=== PATIENT | female | born 1995 | race Caucasian/White ===

== ENCOUNTER 2020-12-08 11:07 | Emergency (ER) | payer OTHER, MEDICAID, SELFPAY ==
--- NOTE | ~2020-12-08 | US_ITS ---
EXAMINATION: US venous doppler [facility] DATE: 12/08/2020 12:05 INDICATION: Left lower limb pain TECHNIQUE: Grayscale ultrasound images without and with compression and Doppler ultrasound images of the left lower extremity veins were obtained. COMPARISON: None. FINDINGS: The visualized portions of left common femoral vein, profunda (deep) femoral vein, femoral vein, popl iteal vein, peroneal veins, posterior tibial veins, gastrocnemius vein and greater saphenous vein out flow are patent. IMPRESSION: 1. No deep venous thrombosis in the left lower limb. Reviewed, dictated and finalized at location A.
[2020-12-08 11:14] VITALS: BP 139/76; PULSE 105; RESP 16; TEMP 36.9; O2SAT 99
[2020-12-08] MEDS: SODIUM CHLORIDE 0.9% IV 1,000 ML 999 ML IV CONT (12:16)
[2020-12-08 12:18] LABS: Basophils Absolute Auto 0.1 K/mm3 (0.0-0.1); Basophils Percent Auto 0.5 % (0.2-1.2); Eosinophils Absolute Auto 0.3 K/mm3 (0-0.3); Eosinophils Percent Auto 2.2 % (0-4.4); Hematocrit 40.5 % (37.0-47.0); Hemoglobin 13.1 g/dL (12.0-15.0); Immature Granulocyte Absolute 0.05 K/mm3 (0.00-0.031); Immature Granulocyte Percent A 0.4 % (0-0.5); Lymphocytes Absolute Auto 4.14 K/mm3 (0.9-3.2); Lymphocytes Percent Auto 32.9 % (18.3-44.2); Mean Corpuscular HGB Conc 32.3 g/dl (32-36); Mean Corpuscular Hemoglobin 29.9 pg (26-34); Mean Corpuscular Volume 92.5 fl (80-100); Mean Platelet Volume 10.5 fl (7.4-10.4); Monocytes Absolute Auto 0.8 K/mm3 (0.1-0.6); Monocytes Percent Auto 6.1 % (2.6-8.5); Neutrophils Absolute Auto 7.3 K/mm3 (1.3-6.7); Neutrophils Percent Auto 57.9 % (45.5-73.1); Platelet Count Result 294 k/mm3 (150-375); Red Blood Count 4.38 M/mm3 (4.2-5.4); Red Cell Distribution Width 12.6 % (11.5-14.5); White Blood Count 12.6 K/mm3 (4.5-10.0)
[2020-12-08 12:29] LABS: Anion Gap 8 mmol/L (8-16); Blood Urea Nitrogen 11 mg/dL (7-17); Calcium 9.6 mg/dL (8.4-10.2); Carbon Dioxide 27 mmol/L (22-30); Chloride 103 mmol/L (98-107); Creatine Kinase 29 U/L (30-135); Estimated CRCL calculation 82 ml/min; Estimated Glomerular Filt Rate > 60; Glucose 80 mg/dL (65-110); Potassium 4.4 mmol/L (3.4-5.0); Prothrombin Time 12.6 Seconds (11.1-14.7); Sodium 138 mmol/L (137-145)
[2020-12-08 12:30] LABS: Partial Thromboplastin Time 22.6 SECONDS (22.3-36.8)
--- NOTE | 2020-12-08 12:33 | ED.GENADULT ---
HPI - General Adult General Chief complaint: Skin/Abscess/Foreign Body Stated complaint: RASH ON LEG SPREADING Time Seen by Provider: 12/08/20 11:28 Source: patient and RN notes reviewed Mode of arrival: ambulatory Limitations: no limitations History of Present Illness HPI narrative: Patient is a 25-year-old female who presents with left leg pain noting pain of the left leg was initially diagnosed as a rash to the leg was placed on steroids and antibiotics which she is currently still taking the rash resolved and now she has aching pain in the leg worse with weightbearing and activity this morning notes that the pain had increased and is worse with any movement Related Data Home Medications Medication Instructions Recorded Confirmed cephalexin 12/08/20 methylprednisolone mg 12/08/20 [id number] K tablet PO 12/08/20 [Adults Multivitamin] Allergies Allergy/AdvReac Type Severity Reaction Status Date / Time Penicillins Allergy Unknown Rash Verified 12/08/20 11:26 ADHESIVE BANDAGE Allergy Unknown RASH Uncoded 12/08/20 11:26 Review of Systems Review of Systems: All systems reviewed & are unremarkable except as noted in HPI and below PMFSH Family History Family History (Updated 03/15/15 @ 09:00 by DOCTOR UNKNOWN) Other Diabetes mellitus Social History Social History Smoking status: Current every day smoker Gender identity (if verbalized by the patient): Female Exam Narrative: GENERAL: Well-appearing, well-nourished, and in no acute distress. HEAD: Normocephalic, atraumatic. EYES: PERRLA and EOMI. ENT: Nares clear, no rhinorrhea or epistaxis. Mucous membranes moist. CHEST: Clear to auscultation. No respiratory distress. No wheezes rales or rhonchi HEART: Regular rate and rhythm. No murmur heard. Normal peripheral pulses. EXTREMITIES: Normal range of motion. No edema. Tenderness of the calf and thigh there are no deformities noted compartments are soft SKIN: Warm, dry, no rash. NEURO: No focal deficits. Alert and oriented x3. Cranial nerves II through XII grossly intact. Neurovascularly intact. Capillary refill less than 2 seconds PSYCH: Normal mood and affect. Course Course Emergency Course: Patient evaluated for leg pain in the emergency department no high risk changes in the evaluation will be referred back to primary care for further evaluation ABCs and vital signs intact and stable Vital Signs Vital signs: Vital Signs Temperature 98.4 F 12/08/20 11:14 Pulse Rate 105 H 12/08/20 11:14 Respiratory Rate 16 12/08/20 11:14 Blood Pressure 139/76 12/08/20 11:14 Pulse Oximetry 99 12/08/20 11:14 Temperature 98.4 F 12/08/20 11:14 Pulse Rate 105 H 12/08/20 11:14 Respiratory Rate 16 12/08/20 11:14 Blood Pressure 139/76 12/08/20 11:14 Pulse Oximetry 99 12/08/20 11:14 Medical Decision Making MDM Narrative Medical decision making narrative: Patients injury or pain is consistent with musculoskeletal etiology. No signs of neurological or vascular compromise on exam. Compartments and tisues are soft without signs of compartment syndrome. Pain is felt appropriate for further evaluation on an outpatient basis. Vital Signs Vital Signs: Vital Signs Temperature 98.4 F 12/08/20 11:14 Pulse Rate 105 H 12/08/20 11:14 Respiratory Rate 16 12/08/20 11:14 Blood Pressure 139/76 12/08/20 11:14 Pulse Oximetry 99 12/08/20 11:14 Temperature 98.4 F 12/08/20 11:14 Pulse Rate 105 H 12/08/20 11:14 Respiratory Rate 16 12/08/20 11:14 Blood Pressure 139/76 12/08/20 11:14 Pulse Oximetry 99 12/08/20 11:14 Lab Data Result diagrams: 12/08/20 12:11 12/08/20 12:11 Labs: Lab Results 12/08/20 12/08/20 12/08/20 Range/Units 12:11 12:11 12:11 WBC 12.6 H (4.5-10.0) K/mm3 RBC 4.38 (4.2-5.4) M/mm3 Hgb 13.1 (12.0-15.0) g/dL Hct 40.5
== END 2020-12-08 13:08 | disposition home or self-care (01) ==
PROVIDERS: Emergency Medicine Emergency Medical Services; Emergency Provider Emergency Medicine; PCP Nurse Practitioner Family
DX: M79.605 Pain in left leg (principal); F17.200 Nicotine dependence, unspecified, uncomplicated
CPT/HCPCS: 36415; 80048; 82550; 85025; 85610; 85730; 93971; 96360; 99284; J7030

== ENCOUNTER 2022-12-06 15:09 | Emergency (ER) | payer OTHER, SELFPAY ==
[2022-12-06 15:34] VITALS: BP 140/90; PULSE 71; RESP 16; TEMP 36.8; O2SAT 99
[2022-12-06 15:35] VITALS: BP 140/90; PULSE 71; RESP 16; TEMP 36.8; O2SAT 99
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
== END 2022-12-06 16:26 | disposition home or self-care (01) ==
PROVIDERS: Emergency Provider Nurse Practitioner; PCP Nurse Practitioner Family
DX: L01.00 Impetigo, unspecified (principal); F17.210 Nicotine dependence, cigarettes, uncomplicated
CPT/HCPCS: 87081; 87880; 99213; G0463

== ENCOUNTER 2024-08-14 09:42 | Outpatient (CLI) | payer OTHER, SELFPAY ==
[2024-08-14 10:35] LABS: Hematocrit 39.5 % (37.0-47.0); Hemoglobin 12.4 g/dL (12.0-15.0)
--- OUTSIDE RECORDS SUMMARY | 2024-08-14 11:09 | XMS_ITS | Clinical Summary ---
Author Organization [facility] [employer] Address [address] [place] [address] Care Team Providers Care Relationship Advisor Name Role Phone Kamilla Lee APRN-HOUSE PAINTER Primary Care Provider [phone] Source Comments [facility],non-owned Affiliates and Associated Physician Practices is amultiple site organization consisting of ambulatory clinics and hospital sitesin [place], [place], [place] and [place]. This disclosure is being madepursuant to the Care Everywhere program and may not contain all information available regarding this patient. Last updated 18.[facility] [employer] Allergies Active Allergy Reactions Criticality Noted Date Comments Adhesive Sensitivity Urticaria Medium 02/22/2019 Penicillins Other 02/22/2019 Yeast infection Medications * Be aware that medications may not be up to date on this document. Alwaysverify current medications with the patient. Medication Sig Dispensed Refills Start Date End Date Status albuterol HFA (PROVENTIL;VENTOLIN; PROAIR) 108 (90 Base) MCG/ACT inhaler Inhale 2 puffs by mouth every 4 hours as needed for Wheezing 1 Inhaler 02/22/2019 Active Social History Tobacco Use Types Packs/Day Years Used Date Smoking Tobacco: Every Day Smokeless Tobacco: Never Sex and Gender Information Value Date Recorded Sex Assigned at Not on file Gender Identity Not on file Sexual Orientation Not on file Last Filed Vital Signs Vital Sign Reading Time Taken Comments Blood Pressure 118/72 02/22/2019 12:51 PM CDT Pulse 81 02/22/2019 12:51 PM CDT Temperature 36.7 C (98.1 F) 02/22/2019 12:51 PM CDT Respiratory Rate 18 02/22/2019 12:51 PM CDT Oxygen Saturation 97% 02/22/2019 12:51 PM CDT Inhaled Oxygen Concentration - - Weight 83.9 kg (185 lb) 02/22/2019 12:51 PM CDT Height 162.6 cm (5' 4 ) 02/22/2019 12:51 PM CDT Body Mass Index 31.76 02/22/2019 12:51 PM CDT Plan of Treatment Health Maintenance Due Date Last Done Comments PAP SMEAR 1996 HIV SCREENING 08/09/2011 HEPATITIS C SCREENING 08/04/2014 DTAP/TDAP/TD VACCINES (1 - Tdap) 08/09/2015 HEPATITIS B VACCINE (1 of 3 - 19+ 3-dose series) 08/09/2015 COVID-19 VACCINE (1 - 2023-2 5 season) 2024 INFLUENZA VACCINE (#1) 2024 DEPRESSION SCREENING 05/10/2024 ZOSTER VACCINE (1 of 2) 2046 HIB VACCINE Aged Out No longer eligi ble based on patient's age to complete this topic HPV VACCINE Aged Out No longer eligi ble based on patient's age to complete this topic MENINGOCOCCAL (Group B) VACC INE SHARED DECISION-MAKING Aged Out No longer eligibl e based on patient's age to complete this topic MENINGOCOCCAL GROUPS A/C/Y/W VACCINE Aged Out No longer eligible b ased on patient's age to complete this topic PNEUMOCOCCAL VACCINE Aged Out No long er eligible based on patient's age to complete this topic Care Teams Relationship Advisor Relationship Specialty Start Date End Date Kamilla Lee APRN-MARKIE [address] [place] [address] PCP - General Nurse Practitioner 02/22/19
--- OUTSIDE RECORDS SUMMARY | 2024-08-14 11:09 | XMS_ITS | Clinical Summary ---
Author Organization [facility] Address [facility] [place] [address] Care Team Providers Care Donor Relations Coordinator Name Role Phone Kamilla Lee MARBIN Primary Care Provider [phone] Allergies Active Allergy Reactions Criticality Noted Date Comments Morphine Itching 03/15/2020 Penicillins Nausea and Vomiting,Other (see comment) 03/20/2013 PCN causes an upset stomach and severe fatigue. Tape Unknown,Rash Low 02/19/2012 Medications PROAIR HFA 108 (90 Base) MCG/ACT inhaler INHALE 2 PUFFS PO Q 4 H UTD 0 03/11/2018 Active fluticasone propionate 50 MCG/ACT nasal sprayIndication s:Allergic rhinitis due to animal hair and dander 2 sprays by Each Nostril route daily. 15.8 g 5 08/05/2018 Active cetirizine 10 MG tabletIndicatio ns:Allergic rhinitis due to animal hair and dander Take 1 tablet (10 mg total) by mouth daily. 30 tablet 6 09/14/2019 Active Cholecalciferol (VITAMIN D) 50 MCG (1999 UT) Tab Active Active Problems Problem Noted Date Diagnosed Date Generalized abdominal pain 03/18/2020 Alcohol abuse 03/18/2020 Chronic vomiting 03/18/2020 Elevated liver enzymes 03/18/2020 Cough 01/15/2019 Tick bite, initial encounter 12/14/2018 Vaginal irritation 12/14/2018 Sore throat 11/22/2018 Sunburn 11/22/2018 Oral thrush 11/22/2018 Anxiety 02/09/2018 Class 1 obesity with body ma ss index (BMI) of 33.0 to 33.9 in adult 02/09/2018 Menstrual period late 02/09/2018 Shaky 03/16/2017 Low vitamin D level 02/11/2017 Allergic rhinitis 02/08/2017 Chronic sinus infection 02/08/2017 Declined smoking cessation 02/08/2017 Depression 02/08/2017 Leukocytes in urine 02/08/2017 Palpitations 02/08/2017 Tachycardia 02/08/2017 Blood in stool, walker 10/12/2013 Migraine 12/30/2012 Immunizations Name Administration Dates Next Due Dtap (Generic) 02/07/2001, 8,02/20/1997,1996 ,1996 HPV 06/21/2009,02/21/2007,12/20/2006 Hepatitis A Vaccine - 2 Dose 06/21/2009,12/21/19 07 Hepatitis B Pediatric 05/31/1997,1996,05/1996 Hib Vaccine, Prp-D 02/01/1998,02/20/1997, 997,1996 Influenza (FluMist) 02/19/2012,02/11/2010 Influenza Adult (Generic) 02/09/2018,02/09/2018 MMR (Generic) 02/17/2001,08/09/1997 Meningococcal Vac A,C,Y,W-135 Sc 02/11/2010 Opv 02/17/2001,02/20/1997,1996 ,1996 Tdap (Generic) 11/13/2013,11/19/2005 Varicella Vaccine 06/21/2009,12/20/2006,11/07/18 98 Family History Medical History Relation Comments Cancer Maternal Grandmother Cancer Mother pancreatic cance r Thyroid Mother Relation Status Comments Father Alive Maternal Grandmother Mother Social History Tobacco Use Types Packs/Day Years Used Date Smoking Tobacco: Every Day Cigarettes 0.5 11 Smokeless Tobacco: Never Tobacco Cessation:Counseling Given: Yes Comments:Provider to anger control counselor Alcohol Use Standard Drinks/Week Comments Yes 10 (1 standard drink = 0.6 oz pu re alcohol) weekends AUDIT-C Answer Date Recorded Frequency of Alcohol Consumption Never 07/08/2018 Average Number of Drinks Not on file 019 Frequency of Binge Drinking Not on file 05/2018 PHQ-2 Answer Date Recorded PHQ-2 Score - If the patient scores above 3, please move on to questions 3-9 4 03/15/2020 Comments No Sex and Gender Information Value Date Recorded Sex Assigned at Not on file Legal Sex Female 9:22 PM CDT Gender Identity Not on file Sexual Orientation Not on file Last Filed Vital Signs Vital Sign Reading Time Taken Comments Blood Pressure 120/72 01/12/2019 2:18 PM CDT Pulse 83 01/12/2019 2:18 PM CDT Temperature 36.4 C (97.6 F) 01/12/2019 2:18 PM CDT Respiratory Rate 16 01/12/2019 2:18 PM CDT Oxygen Saturation 97% 01/12/2019 2:18 PM CDT Inhaled Oxygen Concentration - - Weight 85.3 kg (188 lb) 01/12/2019 2:18 PM CDT Height 162.6 cm (5' 4 ) 01/12/2019 2:18 PM CDT Body Mass Index 32.27 01/12/2019 2:18 PM CDT Plan of Treatment Health Maintenance Due Date Last Done Comments Cervical Cancer Screening Pap Smear (Age 21 to 29) Every 3 Years 1996 Cervical Cancer Screening 1996 Annual Physical 08/09/1999 Pneumococcal Vaccine: Pediatrics (0 to 5 Years) and At-Risk Patients (6 to 64 Years) (1 of 2 - PCV) 2002 Hepatitis C 2014 DTaP, Tdap and Td Vaccines (7 - Td or Tdap) 11/14/2023 11/13/2013, 11/19/2005, 02/07/2001, Additional history exists COVID-19 Vaccine ( season) 2024 PHQ-2 (Physician [place]) 05/10/2024 Hepatitis B Vaccines Completed 05/31/1997, 1996, 1996 HPV Vaccines Completed 06/21/2009, 02/07, 12/20/2006 Meningococcal Vaccine Aged Out 02/11/2010 No daniella piper eligible based on patient's age to complete this topic Meningococcal B Vaccine Aged Out No l onger eligible based on patient's age to complete this topic RSV Immunizations Under 20 Months Aged Out No longer eligible based on patient's age to complete this topic Insurance [place] [employer] Care Teams Donor Relations Coordinator Relationship Specialty Start Date End Date Kamilla Lee FNP [address] [place] [id number] PCP - General Nurse Practitioner Family 05/11/18
== END 2024-08-14 09:43 | disposition home or self-care (01) ==
LOC: ANHSURGERY 09:51
PROVIDERS: Visit Provider Obstetrics & Gynecology
DX: N92.6 Irregular menstruation, unspecified (principal); Z01.818 Encounter for other preprocedural examination
CPT/HCPCS: 36415; 85014; 85018

== ENCOUNTER 2024-08-18 01:15 | Day surgery (SDC) | payer OTHER, SELFPAY ==
[2024-08-11 09:21] VITALS: BMI 34.4
--- NOTE | 2024-08-11 09:27 | PC.NURSE ---
Report to the Outpatient Waiting Room, entrance under the green pavilion located off [facility], at time _0715_ on date _[id number]_. Planned Procedure Time: _0915_.? Time changes happen often and if your time is changed the preop area will call you the afternoon before. - You and your visitor will be asked to self-screen and do not enter if you have any COVID symptoms. Please call surgeon if you need to reschedule. - A mask is optional within the hospital at this time. Patients may have clear liquids (water, carbonated beverages, clear teas, apple juice) until 3 hours prior to surgery with a maximum of 20 ounces. - No food from midnight until time of surgery and no smoking, or chewing tobacco (or any form of nicotine). No chewing gum, candy or mints. Take only the following medications with a SIP of water on the morning of surgery: __None DO NOT STOP ANY OF YOUR OTHER PRESCRIPTION MEDICATIONS PRIOR TO SURGERY EXCEPT THE FOLLOWING Hold all vitamins and supplements for 3 days per anesthesiologist. Medications to discontinue per physician Date to take last qpjm___[id number]____ Please no make-up, nail macedonian, hairspray, perfume, deodorant, or body powder the day of surgery.? No jewelry (including any body piercings) or valuables the day of surgery, leave them at home.? Please take a shower or bath the night before, or the morning of, surgery with an antibacterial soap.? Wear comfortable, loose fitting clothing.? - Jewelry must be removed prior to entering the operating room.? Rings and piercings that are not removed may be cut off. - The hospital will not accept responsibility for valuables.? - Please leave all valuables, including medications, at home the day of surgery. If you are going home after surgery, a licensed oil transport driver must drive you home.? - NO public transportation without another adult if you receive anesthesia. - We recommend that an adult stay with you for 24 hours following discharge. - We also recommend that you do not drive, make important decision, drink alcoholic beverages, or take any drugs that were not prescribed by your health care provider for at least 24 hours after your discharge time. Follow any additional instructions given to you from your surgeon. Telephone instructions given to __Aline___and asked if any additional questions and then verbalized understanding. Patient advised to call surgeon office or pre surgery nurse liaison [phone] if any additional questions.
--- NOTE | 2024-08-15 12:37 | PM.IMHP ---
H&P: HPI History of Present Illness Date/Time: 08/15/24 12:37 Chief Complaint: Bleeding Narrative: 28-year-old female 1 para 1 admitted for hysteroscopy/dilatation curettage. There was collection of fluid inside her uterus on ultrasound imaging. Risks and benefits of this procedure reviewed in great detail. She received the [facility] handout entitled hysteroscopy as well as dilatation curettage. She had all questions answered. She asked to proceed. Review of Systems Review of Systems: CONSTITUTIONAL: DENIES FEVER, CHILLS, OR SWEATS. EYES: DENIES VISUAL CHANGES, REDNESS, OR DISCHARGE. ENT: REPORTS SORE THROAT AND CERVICAL LYMPHADENOPATHY. DENIES RHINORRHEA, CONGESTION OR OTALGIA CARDIOVASCULAR: DENIES CHEST PAIN, PALPITATIONS, OR EDEMA. RESPIRATORY: DENIES COUGH OR DYSPNEA. GASTROINTESTINAL: DENIES ABDOMINAL PAIN, NAUSEA, VOMITING, OR DIARRHEA. GENITOURINARY: DENIES DYSURIA OR HEMATURIA. SKIN: REPORTS IRRITATION OF THE SKIN TO THE UMBILICUS WITH SOME SEROSANGUINEOUS DRAINAGE. MUSCULOSKELETAL: DENIES BACK PAIN, JOINT PAIN, OR MYALGIA. NEUROLOGIC: DENIES HEADACHE, NUMBNESS, DIZZINESS, OR WEAKNESS. PSYCHIATRIC: DENIES ANXIETY OR DEPRESSION. [facility] Past Medical History Medical History No pertinent past medical history Surgical History Surgical History History of cholecystectomy Family History Family History Mother Family history non-contributory Other Diabetes mellitus Social History Social History Smoking packs per day: 0.5 Smoking cigarettes per day: 10.0 Years smoked: 14 Smoking pack-years: 7.00 Smoking status: Current every day smoker Tobacco type: cigarettes Alcohol intake: current Drinks per week: 2 Substance use: current Substance use type: marijuana Living arrangements: with family Gender identity (if verbalized by the patient): Female Sexual Orientation (if Verbalized by the Patient): Lesbian, Nieves, or Homosexual Spiritual care concerns: No Meds Home Medications and Allergies Home Medications ?Medication ?Instructions ?Recorded ?Confirmed ?Type ashwagandha extract 120 mg capsule 120 mg PO DAILY 08/11/24 08/11/24 History multivitamin (Daily Multi-Vitamin 1 tablet PO DAILY 08/11/24 08/11/24 History tablet) Allergies Allergy/AdvReac Type Severity Reaction Status Date / Time adhesive tape Allergy Mild Rash Verified 08/11/24 09:42 Penicillins Allergy Unknown Rash Verified 08/11/24 09:19 Exam Narrative: GENERAL: WELL-APPEARING, WELL-NOURISHED, AND IN NO ACUTE DISTRESS. HEAD: NORMOCEPHALIC, ATRAUMATIC. EYES: PERRLA AND EOMI. ENT: NARES CLEAR, NO RHINORRHEA OR EPISTAXIS. MUCOUS MEMBRANES MOIST. OROPHARYNX WITHOUT TONSILLAR HYPERTROPHY EXUDATE OR OTHER LESIONS. BILATERAL TMS PEARLY JEFFERSON NONBULGING NECK: SUPPLE. NO ADENOPATHY OR MASSES. NO CAROTID BRUITS OR JVD CHEST: CLEAR TO AUSCULTATION. NO RESPIRATORY DISTRESS. NO WHEEZES RALES OR RHONCHI HEART: REGULAR RATE AND RHYTHM. NO MURMUR HEARD. NORMAL PERIPHERAL PULSES. ABDOMEN: SOFT, NONTENDER, NONDISTENDED, NORMAL ACTIVE BOWEL SOUNDS. EXTREMITIES: NORMAL RANGE OF MOTION. NO EDEMA. SKIN: THERE IS A SCANT AMOUNT OF SEROSANGUINEOUS DRAINAGE NOTED IN THE UMBILICUS. WARM, DRY, NO RASH. NEURO: NO FOCAL DEFICITS. ALERT AND ORIENTED X3. PSYCH: NORMAL MOOD AND AFFECT. Assessment and Plan Assessment and plan (1) Excessive bleeding: Code(s): R58 - Hemorrhage, not elsewhere classified Status: Acute Plan Proceed with hysteroscopy/dilatation curettage
--- OUTSIDE RECORDS SUMMARY | 2024-08-18 01:18 | XMS_ITS | Clinical Summary ---
Author Organization [facility] [employer] Address [address] [place] [address] Care Team Providers Care Proposal Manager Writer Name Role Phone Kamilla Lee APRN-INTERNIST Primary Care Provider [phone] Source Comments [facility],non-owned Affiliates and Associated Physician Practices is amultiple site organization consisting of ambulatory clinics and hospital sitesin [place], [place], [place] and [place]. This disclosure is being madepursuant to the Care Everywhere program and may not contain all information available regarding this patient. Last updated 18.[facility] [employer] Allergies Active Allergy Reactions Criticality Noted Date [...] VACCINE (1 - 2023-2 5 season) 2024 DEPRESSION SCREENING 05/10/2024 INFLUENZA VACCINE (Season Ended) 2025 ZOSTER VACCINE (1 of 2) 2046 HIB [...] age to complete this topic Care Teams Proposal Manager Writer Relationship Specialty Start Date End Date Kamilla Lee APRN-MARKIE [address] [place] [address] PCP - General Nurse Practitioner 02/22/19
--- OUTSIDE RECORDS SUMMARY | 2024-08-18 01:19 | XMS_ITS | Clinical Summary ---
Author Organization [facility] Address [facility] [place] [address] Care Team Providers Care Resident Care Manager Rn Name Role Phone Kamilla Lee MARBIN Primary Care Provider [phone] Allergies Active Allergy Reactions Criticality Noted Date [...] Never Tobacco Cessation:Counseling Given: Yes Comments:Provider to school guidance counselor Alcohol Use Standard Drinks/Week Comments Yes [...] COVID-19 Vaccine ( season) 2024 PHQ-2 (Physician [place]) 05/10/2024 Hepatitis B Vaccines Completed 05/31/1997, 1996, [...] this topic Insurance [employer] Care Teams Resident Care Manager Rn Relationship Specialty Start Date End Date Kamilla Lee FNP [address] [place] [id number] PCP - General Nurse Practitioner Family 05/11/18
--- NOTE | 2024-08-18 06:30 | WPDHPUPDATE1 ---
History and Physical Update Update Date/Time: 08/18/24 06:30 History and Physical has been reviewed, including an updated exam of the patient. There are NO changes in the patient's condition. Risks, benefits, and alternatives have been discussed and questions answered. Patient agrees to proceed with procedure.
[2024-08-18 07:20] VITALS: BP 137/83; PULSE 77; RESP 18; TEMP 36.2; O2SAT 98
[2024-08-18] MEDS: LACTATED RINGERS 1,000 ML 30 ML IV CONT (07:35)
[2024-08-18] MEDS: ACETAMINOPHEN 500 MG TABLET 1000 MG PO (07:35)
--- NOTE | 2024-08-18 07:52 | P.PNAN_ITS ---
Anes - Initial Pre Proc Eval Procedure: Operation Date: 08/18/24 09:15 Proposed Procedures p Hysteroscopy Dilation and Curettage - Arik Acevedo MD Date/Time: 08/18/24 07:52 Surgeon: Arik Acevedo MD Pre Op Diagnosis: heavy bleeding, pelvic pain Patient Data Age: 29 Gender: F Height: 1.63 m Weight: 90.9 kg Allergies Allergy/AdvReac Type Severity Reaction Status Date / Time adhesive tape Allergy Mild Rash Verified 08/18/24 07:47 Penicillins Allergy Unknown Rash Verified 08/18/24 07:47 Home Medications ?Medication ?Instructions ?Recorded ?Confirmed ?Type ashwagandha extract 120 mg capsule 120 mg PO DAILY 08/11/24 08/18/24 History multivitamin (Daily Multi-Vitamin 1 tablet PO DAILY 08/11/24 08/18/24 History tablet) hydrocodone 5 mg-acetaminophen 325 1 tablet PO Q4H PRN pain #14 tabs 08/18/24 Rx mg tablet Patient hx anesthesia problems: none Family hx anesthesia problems: none Results Review: All pre-operative results and documents have been reviewed as part of the pre- operative evaluation. COUNTS INCLUDE 234 BEDS AT THE [facility] Past Medical History Medical History No pertinent past medical history Surgical History Surgical History History of cholecystectomy Family History Family History Mother Family history non-contributory Other Diabetes mellitus Social History Social History Smoking packs per day: 0.5 Smoking cigarettes per day: 10.0 Years smoked: 14 Smoking pack-years: 7.00 Smoking status: Current every day smoker Tobacco type: cigarettes Alcohol intake: current Drinks per week: 2 Substance use: current Substance use type: marijuana Living arrangements: with family Gender identity (if verbalized by the patient): Female Sexual Orientation (if Verbalized by the Patient): Lesbian, Nieves, or Homosexual Spiritual care concerns: No Anes - Eval Final PreProcedure Day of Procedure 08/18/24 07:52 Patient weight: obese Heart: regular rate and rhythm Lungs: clear to auscultation Airway: Mallampati scale class II Neurological: alert and oriented Last oral intake: >/= 8 hours ASA classification: II Emergent: no Anesthetic plan: proceed Anesthesia type and monitoring: general GIVS and standard monitoring Results Review: All pre-operative results and documents have been reviewed as part of the pre- operative evaluation. Informed Consent: The patient's anesthetic plan and its attendant risks and benefits were discussed with the patient/family/POA. Questions were solicited and answers provided to the satisfaction of the patient/family/POA.
[2024-08-18 07:58] LABS: BEDSIDEPREGUCG Negative (Negative)
[2024-08-18] MEDS: LIDOCAINE 1% LOCAL INJ 10 ML VIAL INFILTRATE (09:20)
--- NOTE | 2024-08-18 09:27 | W.PM.PROC2 ---
Procedure Note - Detailed Date of Procedure 08/18/24 Pre-op Diagnosis heavy bleeding, pelvic pain Post-op Diagnosis Same Procedure Performed Hysteroscopy/dilatation curettage Surgeon Arik Acevedo MD Anesthesia MAC and Local Indications 29-year-old female with excessive heavy bleeding Findings Uterus sounded 8cm. Thick irregular endometrial tissue seen Description of Procedure Patient was prepped draped in the normal sterile fashion placed in dorsal lithotomy position. Under excellent IV sedation weighted speculum placed in posterior fornix vagina. Anterior lip of the cervix grasped with a single-tooth tenaculum. 2.5cc 1% xylocaine anesthesia placed at 2, 4, 8, 10:00 a.m. respectively. Uterus sounded to 8cm. Serial dilatation with fragmented dilators performed followed by passage of the 5mm visualizing hysteroscope. Normal saline was used as visualizing medium. Thick irregular endometrial tissue was seen but no evidence of polyp or other definitive abnormality seen. The uterus cramped over the entire 360? until good grating sound was heard. The instruments were removed the procedure was terminated patient went recovery in satisfactory condition. All sponge, needle, instrument counts were correct. There were no immediate complications Estimated Blood Loss 5 Drains No Packing No Pathology Yes Complications No immediate complications Condition Stable Disposition PACU
[2024-08-18 09:32] VITALS: BP 117/81; PULSE 70; RESP 16; O2SAT 98
[2024-08-18 10:00] VITALS: BP 119/85; PULSE 60
[2024-08-18 10:30] VITALS: BP 136/86; PULSE 58
== END 2024-08-18 10:39 | disposition home or self-care (01) ==
PROVIDERS: Visit Provider Obstetrics & Gynecology
PROC: 0U5B8ZZ Destruction of Endometrium, Via Natural or Artificial Opening Endoscopic (ICD-10-PCS; CPT 58563; principal; 2024-08-18 09:15)
DX: R93.89 Abnormal findings on diagnostic imaging of other specified body structures (principal); F17.210 Nicotine dependence, cigarettes, uncomplicated; F12.90 Cannabis use, unspecified, uncomplicated; E66.9 Obesity, unspecified; Z68.34 Body mass index [BMI] 34.0-34.9, adult; Z79.891 Long term (current) use of opiate analgesic; Z98.890 Other specified postprocedural states; Z90.49 Acquired absence of other specified parts of digestive tract
CPT/HCPCS: 58558; 88305; A9270; J2003; J2250; J2704; J3010; J7120

== ENCOUNTER 2024-09-29 14:14 | Outpatient (CLI) | payer OTHER, SELFPAY ==
--- OUTSIDE RECORDS SUMMARY | 2024-09-29 14:17 | XMS_ITS | Clinical Summary ---
Author Organization [facility] Address [address] [place] [address] Care Team Providers Care Protozoology Teacher Name Role Phone Kamilla Lee APRN-GLASS PRODUCTION MACHINE OPERATOR Primary Care Provider [phone] Source Comments [facility],non-owned Affiliates and Associated Physician Practices is amultiple site organization consisting of ambulatory clinics and hospital sitesin [place], [place], [place] and [place]. This disclosure is being madepursuant to the Care Everywhere program and may not contain all information available regarding this patient. Last updated 18.[facility] Allergies Active Allergy Reactions Criticality Noted Date Comments Adhesive Sensitivity Urticaria Medium 02/22/2019 Penicillins Other 02/22/2019 Yeast infection Medications * Be aware that medications may not be up to date on this document. Alwaysverify current medications with the patient. albuterol HFA (PROVENTIL;VENT BASIM;PROAIR) 108 (90 Base) MCG/ACT inhaler Inhale 2 puffs by mouth every 4 hours as needed for Wheezing 1 Inhaler 02/22/2019 Active Social History Tobacco Use Types Packs/Day Years Used Date Smoking Tobacco: Every Day Smokeless Tobacco: Never Comments No Sex and Gender Information Value Date Recorded Sex Assigned at Not on file Legal Sex Female 9:07 AM CDT Gender Identity Not on file Sexual [...] of 3 - 19+ 3-dose series) 08/09/2015 PNEUMOCOCCAL VACCINE (1 of 2 - PCV) 08/09/2015 COVID-19 VACCINE (1 - 2023-2 5 [...] patient's age to complete this topic Insurance [facility] SELF PAY NO INSURANCE Member Subscriber Plan / Payer (Ef fective for All Dates) Name:Jinny Dinhen Member ID:Not on file Relation to Subscriber:Not on file Name:MANAN DINH Subscriber ID:Not on file (Home) Address: [address] [place] [id number] Payer ID:Not on file Group ID:Not on file Type:Self Pay Address: [place], [place] Care Teams Protozoology Teacher Relationship Specialty Start Date End Date Kamilla Lee APRN-MARKIE [address] [place] [id number] PCP - General Nurse Practitioner 02/22/19
[2024-09-29 14:56] LABS: Hematocrit 38.9 % (37.0-47.0); Hemoglobin 12.4 g/dL (12.0-15.0); Mean Corpuscular HGB Conc 31.9 g/dl (32-36); Mean Corpuscular Hemoglobin 29.7 pg (26-34); Mean Corpuscular Volume 93.1 fl (80-100); Mean Platelet Volume 10.7 fl (7.4-10.4); Platelet Count Result 320 k/mm3 (150-375); Red Blood Count 4.18 M/mm3 (4.2-5.4); White Blood Count 11.8 K/mm3 (4.5-10.0)
== END 2024-09-29 14:15 | disposition home or self-care (01) ==
PROVIDERS: Visit Provider Student in an Organized Health Care Education/Training Program
DX: N81.9 Female genital prolapse, unspecified (principal)
CPT/HCPCS: 36415; 85027; 86850; 86900; 86901

== ENCOUNTER 2024-10-03 00:41 | Day surgery (SDC) | payer OTHER, SELFPAY ==
[2024-09-29 08:43] VITALS: BMI 34.4
--- NOTE | 2024-09-29 09:10 | PC.NURSE ---
Report to the Outpatient Waiting Room, entrance under the green pavilion located off [facility], at time ___10:00AM____ on date ___10/03/24____. Planned Procedure Time: ___12:00PM .? Time changes happen often and if your time is changed the preop area will call you the afternoon before. - You and your visitor will be asked to self-screen and do not enter if you have any COVID symptoms. Please call surgeon if you need to reschedule. - A mask is optional within the hospital at this time. Patients may have clear liquids (water, carbonated beverages, clear teas, apple juice) until 3 hours prior to surgery (9:00AM) with a maximum of 20 ounces. - No food from midnight until time of surgery and no smoking, or chewing tobacco (or any form of nicotine). No chewing gum, candy or mints. Take only the following medications with a SIP of water on the morning of surgery: NONE DO NOT STOP ANY OF YOUR OTHER PRESCRIPTION MEDICATIONS PRIOR TO SURGERY EXCEPT THE FOLLOWING Hold all vitamins and supplements for 3 days per anesthesiologist.-LAST DOSE 09/29/24. Please no make-up, nail slovenian, hairspray, perfume, deodorant, or body powder the day of surgery.? No jewelry (including any body piercings) or valuables the day of surgery, leave them at home.? Please take a shower or bath the night before, or the morning of, surgery with an antibacterial soap.? Wear comfortable, loose fitting clothing. - Jewelry must be removed prior to entering the operating room.? Rings and piercings that are not removed may be cut off. - The hospital will not accept responsibility for valuables.? - Please leave all valuables, including medications, at home the day of surgery. If you are going home after surgery, a licensed driver manager must drive you home.? - NO public transportation without another adult if you receive anesthesia. - We recommend that an adult stay with you for 24 hours following discharge. - We also recommend that you do not drive, make important decision, drink alcoholic beverages, or take any drugs that were not prescribed by your health care provider for at least 24 hours after your discharge time. Follow any additional instructions given to you from your surgeon. Telephone instructions given to ____PATIENT and asked if any additional questions and then verbalized understanding. Patient advised to call surgeon office or pre surgery nurse liaison [phone] if any additional questions.
[2024-10-03] VITALS (11 sets, daily range): BP systolic 121–161; BP diastolic 69–99; PULSE 62–85; RESP 13–20; TEMP 36.2–36.6; O2SAT 98–100
--- OUTSIDE RECORDS SUMMARY | 2024-10-03 00:44 | XMS_ITS | Clinical Summary ---
Author Organization [facility] [employer] Address [address] [facility] [place] [address] Care Team Providers Care Air Pollution Compliance Inspector Name Role Phone Kamilla Lee APRN-EXTRUSION OPERATOR Primary Care Provider [phone] Source Comments [facility],non-owned Affiliates and Associated Physician Practices is amultiple site organization consisting of ambulatory clinics and hospital sitesin [place], [place], [place] and [place]. This disclosure is being madepursuant to the Care Everywhere program and may not contain all information available regarding this patient. Last updated 18.[facility] Allergies Active Allergy Reactions Criticality Noted Date [...] 12:51 PM CDT Height 162.6 cm (5' 4) 02/22/2019 12:51 PM CDT Body Mass Index [...] patient's age to complete this topic Insurance [facility] SELF PAY NO INSURANCE Member Subscriber Plan / Payer (Ef fective for All Dates) Name:Jinny Dinhen Member ID:Not on file Relation to Subscriber:Not on file Name:MANAN DINH Subscriber ID:Not on file (Home) Address: [address] [place] [phone] Payer ID:Not on file Group ID:Not on file Type:Self Pay Address: [place], [place] Care Teams Air Pollution Compliance Inspector Relationship Specialty Start Date End Date Kamilla Lee APRN-MARKIE [address] [place] [id number] PCP - General Nurse Practitioner 02/22/19
[2024-10-03] MEDS: ACETAMINOPHEN 500 MG TABLET 1000 MG PO ×2 (10:10→17:13)
[2024-10-03] MEDS: LACTATED RINGERS 1,000 ML 30 ML IV CONT ×2 (10:15→15:07)
[2024-10-03] MEDS: KETOROLAC 15 MG/ML VIAL (*BKC) IV PUSH (10:20)
--- NOTE | 2024-10-03 11:23 | P.PNAN_ITS ---
Anes - Initial Pre Proc Eval Procedure: Operation Date: 10/03/24 12:00 Proposed Procedures p Robotic Assisted Total Laparoscopic Hysterectomy with Bilateral Salpingectomy - Jonas Boles MD Date/Time: 10/03/24 11:23 Surgeon: Jonas Boles MD Pre Op Diagnosis: uterine prolapse Patient Data Age: 29 Gender: F Height: 1.63 m Weight: 90.4 kg Last Vital Signs Temp 97.4 F L 10/03/24 09:56 Pulse 75 10/03/24 09:56 Resp 18 10/03/24 09:56 BP 123/69 10/03/24 09:56 Pulse Ox 98 10/03/24 09:56 O2 Del Method Room Air 10/03/24 09:56 Allergies Allergy/AdvReac Type Severity Reaction Status Date / Time Penicillins Allergy Unknown Rash Verified 09/29/24 08:39 adhesive tape AdvReac Mild BLISTERS/SKIN Verified 09/29/24 08:39 IRRITATION Home Medications ?Medication ?Instructions ?Recorded ?Confirmed ?Type nenitaa extract 120 mg capsule 120 mg PO DAILY 08/11/24 10/03/24 History multivitamin (Daily Multi-Vitamin 1 tablet PO DAILY 08/11/24 10/03/24 History tablet) Patient hx anesthesia problems: none Family hx anesthesia problems: none Results Review: All pre-operative results and documents have been reviewed as part of the pre- operative evaluation. [facility] Past Medical History Medical History Migraine IBS (irritable bowel syndrome) Surgical History Surgical History H/O dilation and curettage History of cholecystectomy Family History Family History Mother Cervical cancer Uterine cancer Hypertension Depression Grandparent No problems noted. Other Diabetes mellitus Social History Social History Smoking packs per day: 0.5 Smoking cigarettes per day: 10.0 Years smoked: 14 Smoking pack-years: 7.00 Smoking status: Current every day smoker Tobacco type: cigarettes Alcohol intake: current Drinks per week: 2 Substance use: current Substance use type: marijuana Do You Feel Safe in your Home?: Yes Lack of Transportation: No Lack of Food: Never True Living arrangements: with family Occupation/Education: occupation Gender identity (if verbalized by the patient): Female Sexual Orientation (if Verbalized by the Patient): Lesbian, Nieves, or Homosexual Spiritual care concerns: No Anes - Eval Final PreProcedure Day of Procedure 10/03/24 11:23 Patient weight: obese Lungs: normal air movement Airway: Mallampati scale class II Neurological: alert and oriented Last oral intake: >/= 8 hours ASA classification: II Emergent: no Anesthetic plan: proceed Anesthesia type and monitoring: general ETT and standard monitoring Results Review: All pre-operative results and documents have been reviewed as part of the pre- operative evaluation. Smoker 1/2 ppd, smoked at 7 am. BMI 34. Informed Consent: The patient's anesthetic plan and its attendant risks and benefits were discussed with the patient/family/POA. Questions were solicited and answers provided to the satisfaction of the patient/family/POA.
--- NOTE | 2024-10-03 11:47 | SUR.PREOP ---
1140 PT INFORMED OF SURGERY TIME DELAY, DENIES NEEDS AT THIS TIME.
--- NOTE | 2024-10-03 12:40 | SUR.PREOP ---
1230 PT UPDATED ON CONTINUED DELAY TIME. UP TO RESTROOM.
--- NOTE | 2024-10-03 12:41 | PM.IMHP ---
H&P: HPI History of Present Illness Date/Time: 10/03/24 12:41 Chief Complaint: Abnormal uterine bleeding pelvic pain Narrative: 29 yo female who presents for robotic TLH/BS for AUB and pelvic pain. patient has tried hormonal contraceptives in the past but does not tolerate them. She prefers to avoid hormonal contraceptives. Patient has 1 10-year-old child. She is currently in a same-sex relationship and does not desire any future children. Patient underwent hysteroscopy and D&C. Pathology showed benign endometrium. Patient was then recommended hysterectomy. She was also informed that she had uterine prolapse. Patient had not expressed any prolapse symptoms. Patient was also told she had a cervical cyst. Review of Systems Cardiovascular: Cardiovascular: Denies chest pain, Denies leg edema, Denies palpitations, Denies dyspnea and Denies dyspnea on exertion Respiratory: Respiratory: Denies cough, Denies dyspnea and Denies dyspnea on exertion Gastrointestinal: Gastrointestinal: Denies abdominal pain, Denies constipation, Denies diarrhea, Denies nausea and Denies vomiting Genitourinary: Genitourinary: Denies hematuria, Denies urinary frequency, Denies dysuria, Denies pelvic pain, Denies urinary incontinence and Denies vaginal discharge Neurologic: Reports system reviewed and no additional complaints, except as documented Psychiatric: Psychiatric: Reports no additional psychiatric complaints Endocrine: Endocrine: Denies palpitations PMFSH Past Medical History Medical History Migraine IBS (irritable bowel syndrome) Surgical History Surgical History H/O dilation and curettage History of cholecystectomy Family History Family History Mother Cervical cancer Uterine cancer Hypertension Depression Grandparent No problems noted. Other Diabetes mellitus Social History Social History Smoking packs per day: 0.5 Smoking cigarettes per day: 10.0 Years smoked: 14 Smoking pack-years: 7.00 Smoking status: Current every day smoker Tobacco type: cigarettes Alcohol intake: current Drinks per week: 2 Substance use: current Substance use type: marijuana Do You Feel Safe in your Home?: Yes Lack of Transportation: No Lack of Food: Never True Living arrangements: with family Occupation/Education: occupation Gender identity (if verbalized by the patient): Female Sexual Orientation (if Verbalized by the Patient): Lesbian, Nieves, or Homosexual Spiritual care concerns: No Meds Home Medications and Allergies Home Medications ?Medication ?Instructions ?Recorded ?Confirmed ?Type leo extract 120 mg capsule 120 mg PO DAILY 08/11/24 10/03/24 History multivitamin (Daily Multi-Vitamin 1 tablet PO DAILY 08/11/24 10/03/24 History tablet) Allergies Allergy/AdvReac Type Severity Reaction Status Date / Time Penicillins Allergy Unknown Rash Verified 09/29/24 08:39 adhesive tape AdvReac Mild BLISTERS/SKIN Verified 09/29/24 08:39 IRRITATION Vital Signs Vital Signs - 24 hr 10/03/24 09:56 Temperature 97.4 F L Pulse Rate 75 Respiratory Rate 18 Blood Pressure 123/69 Pulse Oximetry 98 Oxygen Delivery Room Air Exam Const: General: no acute distress Eyes: EOM: EOMs intact bilaterally Neck: Neck: supple Thyroid: thyroid normal Chest: Breast/axilla inspection: normal inspection of the breasts Breast/axilla palpation: normal palpation of the breasts, normal palpation of the axillae and no axillary lymphadenopathy Resp: Effort & Inspection: normal respiratory effort Auscultation: clear to auscultation bilaterally Cardio: Rate: regular rate Rhythm: regular rhythm GI: Inspection: non-distended GI Palp: Yes Soft to palpation, No Tenderness to palpation present (GI) and No Guarding due to palpation present (GI) Auscultation: normal bowel sounds : General: No bladder normal to palpation External Female Exam: normal external appearance Speculum Exam - Vagina: normal vaginal discharge and No vaginal bleeding Speculum Exam - Cervix: nontender Bimanual exam- vagina & uterus: No bladder normal to palpation and No Cervical tenderness present OB/external & speculum: No vaginal bleeding Skin: General skin exam: normal color and no rashes or lesions noted Neuro: Cognition (Neuro): normal cognition Speech: normal speech Extrem: General: normal to inspection and no edema Psych: Mental Status: mental status grossly normal Affect: normal affect Assessment and Plan Assessment and plan (1) Abnormal uterine bleeding (AUB): Code(s): N93.9 - Abnormal uterine and vaginal bleeding, unspecified Status: Acute Assessment and Plan: 29-year-old female who presents for evaluation of abnormal uterine bleeding Patient reports a remote history of hormonal contraceptives She has 1 living child Patient is currently in a same-sex relationship Patient is not interested in any hormonal contraceptives at this time Patient has undergone hysteroscopy and D&C, with benign endometrial pathology Reviewed management options for abnormal uterine bleeding at length Reviewed medical management and surgical management options. Risks and benefits of each reviewed Patient given a printed handout regarding abnormal uterine bleeding and management options Patient wishes to proceed with hysterectomy Reviewed robotic assisted total laparoscopic hysterectomy with bilateral salpingectomy at length Will proceed to schedule the above procedure (2) Pelvic pain: Code(s): R10.2 - Pelvic and perineal pain Status: Acute
--- NOTE | 2024-10-03 12:43 | WPDHPUPDATE1 ---
History and Physical Update Update Date/Time: 10/03/24 12:43 History and Physical has been reviewed, including an updated exam of the patient. There are NO changes in the patient's condition. Risks, benefits, and alternatives have been discussed and questions answered. Patient agrees to proceed with procedure.
[2024-10-03] MEDS: ceFAZolin 2 GM/D5W 50 ML 2 GM/50 ML BAG IVPB (13:51)
[2024-10-03] MEDS: LIDO 1%/EPINEPHRINE 1:100,000 20 ML VIAL 30 ML INFILTRATE (14:31)
--- NOTE | 2024-10-03 14:39 | S_PTH ---
PATIENT: Aline Lozano LOC: [facility] U#:[id number] AGE/SX: 29/F ROOM: RE10/03/[address]: Jonas Boles MD : 1995 BED: DIS: 10/04/2024 SPEC #: [id number] RECD: 10/04/24 07:05 STATUS: SOHAM RERajendra #: [id number] YARELIS: 10/03/24 14:[address]: Jonas Boles DEPT: [facility] Surgical RECD BY: Dayanara Chacon ENTERED: 10/04/24 07:05 SP TYPE: Surgical OTHR DR: RADIOLOGY PHYSICIAN ASSISTANT PHYSICIAN Tissues: A - Uterus Procedures: Hematoxylin and Eosin Stain Gross and Microscopic Level 5
--- NOTE | 2024-10-03 14:51 | P.OP_ITS ---
Procedure Note - Detailed Date of Procedure 10/03/24 Pre-op Diagnosis Abnormal uterine bleeding pelvic pain Post-op Diagnosis Same Procedure Performed robotic assisted total laparoscopic hysterectomy and bilateral salpingectomy Surgeon Jonas Boles MD Anesthesia General Indications AUB Findings normal appearing uterus, bilateral fallopian tubes and ovaries Description of Procedure After the patient was appropriately consented she was taken to the operating room where she was transferred to the table in a dorsal supine position. General anesthesia was then induced with endotracheal intubation. The patient was transferred to a dorsal lithotomy position using adjustable yellow-fin stirrups. Her position was adjusted for appropriate support of her lower back and lower extremities. The patient was prepped and draped. A transurethral solorio catheter was place. The cervix was sequentially dilated and a NICK uterine manipulator placed in typical fashion about a 3cm GURVINDER ring. Gloves were changed. After confirmation of a functioning orogastric tube, lidocaine was injected at Davies's point in the LUQ and a 5mm incision was made. A 5mm Optiview trocar was then inserted into the abdominal cavity under direct visualization and done so without complication. The abdomen was then insufflated with approximately 2-3L of CO2 establishing a pneumoperitoneum and the patient was placed in Trendelenburg position. Just above the umbilicus in the midline, a 8mm incision made after injection of lidocaine and a 8mm bladeless trocar advanced into the abdominal cavity under direct visualization without incident. We subsequently placed two robotic ports in a similar fashion, one in the left mid-quadrant and one in the right, 10cm lateral to the midline port. The robot was then docked. Attention was turned to the left pelvis. The left fallopian tube was removed by sequentially dividing the mesosalpinx towards the uterus sparing the ovary. The utero-ovarian ligament was desiccated and transected, as was the round ligament. The posterior peritoneal leaf was taken down to the GURVINDER ring. The anterior leaf was developed as well as the start of the bladder flap. The left uterine artery was then skeletonized and desiccated and transected just above the level of the GURVINDER ring. Attention was turned to the right pelvis. The right fallopian tube was removed by sequentially dividing the mesosalpinx towards the uterus sparing the ovary. The utero-ovarian ligament was desiccated and transected, as was the round ligament. The posterior peritoneal leaf was taken down to the GUVRINDER ring. The anterior leaf was developed as well as the start of the bladder flap. The right uterine artery was then skeletonized and desiccated and transected just above the level of the GURVINDER ring. The bladder was then further dissected inferiorly over the level of the GURVINDER ring. A circumferential colpotomy was made using monopolar current. The uterus, cervix, bilateral tubes were then delivered transvaginally. I then placed a sing le figure of eight suture of 0-vicryl in the left corner of the vaginal cuff. I then re-approximated the colpotomy with a running #1 PDO Quill suture in 2 layers. Following this dissection, the abdomen and pelvis were copiously irrigated and all surgical sites found to be hemostatic. Skin sites were reapproximated with 4-0 Vicryl in a subcuticular fashion. Steri-Strips were placed. The patient tolerated the procedure well. Sponge, needle and instrument counts were correct x 2 and the patient was taken to recovery in stable condition. Ancef was given for antimicrobial prophylaxis. The patient had SCD's on for VTE prophylaxis during the entire procedure. Estimated Blood Loss 25 Drains No Packing No Pathology Yes (cervix, uterus, fallopian tubes) Complications No immediate complications Condition Stable Disposition PACU [facility] Billing Surgery - Charge Forward: Surgery Billing
[2024-10-03] MEDS: fentaNYL CITRATE INJ (*CRX) 100 MCG/2 ML VIAL 25 MCG IV PUSH ×5 (15:24→16:24)
--- NOTE | 2024-10-03 16:36 | OBPPTRN ---
Patient transferred to post room #288 via bed. Support person present. Oriented to unit, room, information board,and admission packet. Patient verbalizes understanding.
[2024-10-03] MEDS: KETOROLAC 30 MG/ML VIAL (*BKC) IV PUSH (17:13)
[2024-10-03] MEDS: SIMETHICONE 80 MG TAB.CHEW PO (17:13)
[2024-10-04] MEDS: KETOROLAC 30 MG/ML VIAL (*BKC) IV PUSH
[2024-10-04 00:01] VITALS: BP 128/77; PULSE 82; RESP 18; TEMP 36.4; O2SAT 96
[2024-10-04] MEDS: ACETAMINOPHEN 500 MG TABLET 1000 MG PO ×2 (05:10)
[2024-10-04 05:17] VITALS: BP 106/64; PULSE 61; RESP 16; TEMP 36.6; O2SAT 97
[2024-10-04 07:25] VITALS: BP 115/57; PULSE 67; RESP 18; TEMP 37.1; O2SAT 98
--- NOTE | 2024-10-04 07:50 | WPDANESPN ---
Anes - Prog Note Post-Op Date/Time: 10/04/24 07:50 Cardiovascular status: normal Respiratory status: normal Airway patency: baseline Mental status: baseline Vital Signs: Last Vital Signs Temp 36.6 C 10/04/24 05:17 Pulse 61 10/04/24 05:17 Resp 16 10/04/24 05:17 BP 106/64 10/04/24 05:17 Pulse Ox 97 10/04/24 05:17 O2 Del Method Room Air 10/04/24 05:17 O2 Flow Rate 8 10/03/24 15:15 Pain Score (VAS): 5-spoke to patient about importance of taking prescribed pain meds at regular intervals I/O: Intake & Output 10/03/24 10/03/24 10/04/24 15:59 23:59 07:59 Intake Total 1050 1140 Output Total 230 2400 Balance 1050 910 -2400 Patient Feedback: Patient satisfied with anesthetic care.
[2024-10-04] MEDS: IBUPROFEN 600 MG TABLET PO (07:54)
[2024-10-04] MEDS: SIMETHICONE 80 MG TAB.CHEW PO (07:54)
--- NOTE | 2024-10-04 08:12 | P.DS_ITS ---
DS: Admitting Diagnosis Discharge Date 10/04/24 Admitting Diagnosis Abnormal uterine bleeding pelvic pain DS: Discharge Diagnosis Discharge Diagnosis (1) Abnormal uterine bleeding (AUB): Code(s): N93.9 - Abnormal uterine and vaginal bleeding, unspecified Status: Acute (2) Pelvic pain: Code(s): R10.2 - Pelvic and perineal pain Status: Acute (3) Status post hysterectomy: Code(s): Z90.710 - Acquired absence of both cervix and uterus Status: Acute DS: Summary Hospital Course Hospital Course: 29 yo female who presents for robotic assisted TLH/BS for pelvic pain and abnormal uterine bleeding. Your patient had an uncomplicated procedure. Her Postoperative course was uncomplicated. She was discharged home on postoperative day 1. Status at Discharge Overall status at discharge: patient is progressing back to baseline Time Spent with Patient Time attestation: Total time spent providing and/or coordinating discharge services: Time spent: Less than 30 minutes Exam Const: General: comfortable and no acute distress Limitations: no limitations Resp: Effort & Inspection: normal respiratory effort Auscultation: clear to auscultation bilaterally Cardio: Rate: regular rate Rhythm: regular rhythm GI: Inspection: non-distended GI Palp: Yes Soft to palpation, Yes Tenderness to palpation present (GI) (milder tenderness to deep palpation) and No Guarding due to palpation present (GI) Auscultation: normal bowel sounds Other: incisions C/D/I covered with dermabond Urinary Catheter: Urinary Catheter: urine clear Skin: General skin exam: normal color Extrem: General: normal to inspection Psych: Mental Status: mental status grossly normal Affect: normal affect DS: Data Data Completed and Pending Pending studies at discharge: Pending at discharge 10/03/24 14:39 Surgical [PTH] Routine Discharge Plan Discharge Patient Disposition: Home Patient Instructions: Laparoscopic Hysterectomy (DC) Patient Language: Fijian Stand Alone Forms: General Discharge Instructions Follow-up/Referrals: Jonas Boles MD [Physician] - 2 Weeks Discharge Medications: New oxycodone-acetaminophen 5-325 mg tablet 1 tablet PO Q6H PRN (Reason: pain) Qty: 28 0RF ibuprofen 600 mg tablet 600 mg PO Q6H PRN (Reason: pain) Qty: 30 0RF Continued multivitamin [Daily Multi-Vitamin] Tablet 1 tablet PO DAILY ashwagandha extract 120 mg capsule 120 mg PO DAILY
== END 2024-10-04 10:56 | disposition home or self-care (01) ==
LOC: ANHSURGERY 09:42 → ANHOB2 16:50
PROVIDERS: Visit Provider Student in an Organized Health Care Education/Training Program
PROC: (CPT 58571; principal; 2024-10-03 12:00)
DX: N93.9 Abnormal uterine and vaginal bleeding, unspecified (principal); R10.2 Pelvic and perineal pain; N72 Inflammatory disease of cervix uteri; N88.8 Other specified noninflammatory disorders of cervix uteri; N80.03 Adenomyosis of the uterus; N70.11 Chronic salpingitis; F17.210 Nicotine dependence, cigarettes, uncomplicated; F12.90 Cannabis use, unspecified, uncomplicated; E66.9 Obesity, unspecified; Z68.34 Body mass index [BMI] 34.0-34.9, adult
CPT/HCPCS: 58571; S2900; 88307; 99199; A9270; J0690; J1100; J1171; J1885; J2003; J2004; J2250; J2405; J2704; J3010; J7030; J7120